=== PATIENT | female | born 1985 | race African-American/Black ===

== ENCOUNTER 2017-09-27 15:30 | Emergency (ER) | payer BC, OTHER ==
[~2017-09-27] VITALS: Ht 160 cm; Wt 92.5 kg
[~2017-09-27 15:30] MED LIST: AMOXIL 875 MG875 M2 PO; APAP500 PO; BIRTH CONTROL; CLEOCIN HCL300 MG PO; ERYTHROMYCIN E3.5 G3 OP; HYDROCODONE-AP1 EAC6 PO; HYDROCODONE-APA10 ML PO; HYDROCORTISONE 01 OZ TP; IBUPROFEN 600600 M1 PO; IBUPROFEN 800800 M1 PO; IBUPROFEN PO; IRON325; IRON325 PO; LANOLIN ANHYDRO30 GM TOP; LANOLIN56 GM; NORCO 5-325 TA1 EACH PO; PRENATAL PO; PRILOSEC 20 MG20 MG PO; TRINATE TABLET1 TAB PO; TUCKS MEDICATE1 EAC1; TUSSIONEX PENN473 ML PO; ZANTAC 150MG T150 MG PO; ZPAK PO; [UNRECOGNIZED DRUG - OTHER] PO; [UNRECOGNIZED DRUG - OTHER] TP
[2017-09-27] MEDS ORDERED: CIPROFLOXIN HC2.5 M1 OPHTHALMIC (16:11)
== END 2017-09-27 16:20 | disposition home or self-care (01) ==
LOC: ER 15:30
DX: S05.02XA Injury of conjunctiva and corneal abrasion without foreign body, left eye, initial encounter (principal); X58.XXXA Exposure to other specified factors, initial encounter; Y93.89 Activity, other specified; Y92.89 Other specified places as the place of occurrence of the external cause; Y99.8 Other external cause status